=== PATIENT | female | born 1955 | race Caucasian/White ===

== ENCOUNTER 2017-06-25 10:59 | Emergency (ER) | payer OTHER ==
[~2017-06-25] VITALS: Wt 94.5 kg
[~2017-06-25 10:59] MED LIST: ALBUTEROL; AMLO2.5T78 PO; AMLO5TAB4 PO; AZIT500T3 PO; BENA40TA54 PO; HYDR-905 PO; HYDR25TA6 PO; IBUP800T25 PO; LORA10TA3 PO; METH750T93 PO; MOME13HF INH
[2017-06-25 13:42] LABS: ADD UMIC NO; UR ASCORBIC ACID NEGATIVE (NEGATIVE); UR BILIRUBIN (Dip) NEGATIVE (NEGATIVE); UR BLOOD (Dip) NEGATIVE (NEGATIVE); UR CLARITY CLEAR (CLEAR); UR COLOR YELLOW (YELLOW); UR GLUCOSE (Dip) NEGATIVE (NEGATIVE); UR KETONES (Dip) NEGATIVE (NEGATIVE); UR LEUKOCYTE ESTERASE (Dip) NEGATIVE Leu/ul (NEGATIVE); UR NITRITE (Dip) NEGATIVE (NEGATIVE); UR SPECIFIC GRAVITY (Dip) 1.023 (1.003-1.030); UR TOTAL PROTEIN (Dip) NEGATIVE (NEGATIVE); UR UROBILINOGEN (Dip) NEGATIVE (NEGATIVE)
--- NOTE | 2017-06-25 14:31 | ERD ---
ER Documentation Chief Complaint Chief Complaint l. sided hernandez rad into l. eye and ear also dysuria HPI 61-year-old female comes in with left-sided headache going to her left eye, ear for for the past 4 days, also urinary incontinence with urinary frequent urination over the last 2 months.Patient describes sharp pain, intermittent, no blurry vision, nausea, paresthesias, loss of consciousness.She describes his headache to be mild and intermittent. She does not have any weekly headache and denies that this is a worse headache of her life. She also has had history of what appears to be uterine prolapse, states that she has had leakage of urine for the past 2 months as well. She denies fevers or chills, nausea, vomiting, diarrhea, vaginal bleeding. ROS All systems reviewed and are negative except as per history of present illness. Medications Home Meds Active Scripts Ibuprofen* (Motrin*) 800 Mg Tab, 800 MG PO TID, #30 TAB Prov:STEPAN BOJORQUEZ DO 03/15/16 Methocarbamol* (Robaxin*) 750 Mg Tablet, 750 MG PO TID, #30 TAB Prov:STEPAN BOJORQUEZ DO 03/15/16 Hydrocodone/Acetaminophen ([place] 7.5-325 Tablet) 1 Each Tablet, 1 EACH PO q 4-6 h prn pain, #20 TAB Prov:STEPAN BOJORQUEZ DO 03/15/16 Amlodipine Besylate* (Norvasc*) 5 Mg Tablet, 5 MG PO DAILY for 30 Days, TAB Prov:STEPAN BOJORQUEZ DO 03/15/16 Reported Medications Azithromycin* (Zithromax*) 500 Mg Tablet, 500 MG PO DAILY for 5 Days 02/28/13 Mometasone-Formoterol (Dulera) 13 Gm Hfa.aer.ad, 2 INH BID 02/28/13 Loratadine* (Loratadine*) 10 Mg Tablet, 10 MG PO DAILY 02/28/13 Amlodipine Besylate* (Amlodipine Besylate*) 2.5 Mg Tablet, 5 MG PO HS 02/28/13 [Albuterol] No Conflict Check 02/28/13 Hydrochlorothiazide (Hydrochlorothiazide) 25 Mg Tablet, 25 MG PO AM 02/28/13 Benazepril Hcl* (Lotensin*) 40 Mg Tablet, 40 MG PO DAILY 02/28/13 Allergies Allergies: Coded Allergies: No Known Allergy (Unverified , 02/28/13) PMhx/Soc History of Surgery: Yes (EYES) Hx Neurological Disorder: No Hx Respiratory Disorders: Yes (COPD) Hx Cardiac Disorders: Yes (HTN; CHF) Hx Psychiatric Problems: No Hx Miscellaneous Medical Probl: Yes (Pruritus) Hx Alcohol Use: No Hx Substance Use: No Hx Tobacco Use: No Smoking Status: Never smoker Physical Exam Vitals Vital Signs Date Time Temp Pulse Resp B/P Pulse Ox O2 Delivery O2 Flow Rate FiO2 06/25/17 11:37 99.2 83 20 179/77 98 Physical Exam General: Well-developed, well-nourished. The patient appears in no acute distress. HEENT: Head is normocephalic, atraumatic. No scleral icterus. Neck: Supple. Nontender. Lungs: Clear to auscultation. Normal air movement. Heart: Regular rate and rhythm. S1 and S2 are normal. No murmurs, gallops, or rubs. Abdomen: Soft, nontender, nondistended. Bowel sounds are normoactive. Extremities: No clubbing or cyanosis. Normal pulses. Moving extremities x 4. No weakness. Neurologic: Alert and oriented 3. No focal deficits.Cranial nerves II to XII grossly intact, speech and gait normal. Skin: Normal turgor. No rash or lesions. Results 24 hrs Laboratory Tests Test 06/25/17 13:30 Urine Color YELLOW Urine Clarity CLEAR Urine pH 5.0 Urine Specific [place] 1.023 Urine Ketones NEGATIVEmg/dL Urine Nitrite NEGATIVEmg/dL Urine Bilirubin NEGATIVEmg/dL Urine Urobilinogen NEGATIVEmg/dL Urine Leukocyte Esterase NEGATIVELeu/ul Urine Hemoglobin NEGATIVEmg/dL Urine Glucose NEGATIVEmg/dL Urine Total Protein NEGATIVEmg/dl DIAGNOSTIC IMAGING REPORT Patient: JOSE HEATH : 1955 Age: 61 Sex: F MR #: [id number] DOS: 06/25/17 1343 Ordering MD: KEISHA GENTILE PA-C Location: [facility] Room/Bed: PROCEDURE: US Pelvis. CLINICAL INDICATION: pelvic pain , history of fibroids TECHNIQUE: Multiple sonographic images of the pelvis were obtained utilizing a transabdominal and endovaginal technique. The images were reviewed on a PACS workstation. COMPARISON: None. FINDINGS: The study is limited due to the patient's body habitus. The fundus of the uterus is not well seen. The uterus is normal in size with a heterogeneous appearance of the myometrium. The uterus measures 6.0 x 3.3 x 4.2 cm. There are Nabothian cysts in the cervix. The endometrial stripe is homogeneous in appearance and has the thickness of 1.1 mm. The ovaries are not visualized due to overlying bowel gas. No free fluid is present within the pelvis. RPTAT: AA IMPRESSION: Heterogeneous uterus with no discrete mass. Atrophic endometrium. Ovaries not visualized. .Bj Winter MD, MD Date Time Electronically viewed and signed by .Bj Winter MD, MD on 06/25/2017 14: 42 .S/ CC: KEISHA GENTILE PA-C DIAGNOSTIC IMAGING REPORT Patient: JOSE HEATH : 1955 Age: 61 Sex: F MR #: [id number] DOS: 06/25/17 1442 Ordering MD: KEISHA GENTILE PA-C Location: [facility] Room/Bed: PROCEDURE: Noncontrast CT Head. CLINICAL INDICATION: Left temporal headache for 4 days. TECHNIQUE: Noncontrast CT of the head was obtained. The administered radiation dose was CTDI vol = 44.03 mGy, DLP = 720.23 mGy-cm. One or more of the following dose reduction techniques were used: Automated exposure control, Adjustment of the mA and/or kV according to patient size, or Use of iterative reconstruction technique. COMPARISON: There are no similar studies submitted for comparison. FINDINGS: There is no acute intracranial hemorrhage, midline shift, or mass effect. The cerebral saini-white matter differentiation appears preserved. No extra-axial collection is seen. The cerebral sulci and ventricles are within normal limits in size and configuration for patient's age. Mild patchy low attenuation scattered in the periventricular, deep, and subcortical cerebral white matter is nonspecific, but suggestive of mild chronic microangiopathic change. The basal cisterns are preserved. The brainstem and cerebellum are grossly unremarkable, although suboptimally evaluated with CT secondary to beam- hardening artifact. There is bilateral aphakia. The visualized paranasal sinuses and mastoid air cells are clear. No acute fracture or suspicious osseous lesion is identified. IMPRESSION: 1. No evidence of an acute intracranial process. 2. Evidence of mild chronic microangiopathic cerebral white matter change. RPTAT: HRC Physician Levy Date Time Electronically viewed and signed by Physician Levy on 06/25/2017 15: 44 RC/ Procedures/MDM 61-year-old female presents with stress incontinence, atrophic endometrium, and otherwise unremarkable pelvic ultrasound. Urine was negative for infection. The patient's symptoms include leakage from the vaginal region, this is likely stress incontinence. She has some pelvic pain as well but no pelvic masses seen on ultrasound. She also had a CT scan of head due to her left-sided headache, there is no hydrocephalus, symptoms are likely due to a peripheral neuralgia. No evidence of Sanchez's palsy, history is not concerning for TIA or stroke. Patient's blood pressure was elevated (>120/80) but appears stable without evidence of hypertension emergency or urgency. The patient was counseled about the risks of hypertension and urged to pursue outpatient monitoring and therapy within a week with their primary care physician. Departure Diagnosis: Primary Impression: Stress incontinence Additional Impressions: Headache Hypertension Condition: KEISHA Lin PA-C Jun 25, 2017 14:31
--- NOTE | 2017-06-25 14:42 | RADRPT ---
PROCEDURE: US Pelvis. CLINICAL INDICATION: pelvic pain , history of fibroids TECHNIQUE: Multiple sonographic images of the pelvis were obtained utilizing a transabdominal and endovaginal technique. The images were reviewed on a PACS workstation. COMPARISON: None. FINDINGS: The study is limited due to the patient's body habitus. The fundus of the uterus is not well seen. The uterus is normal in size with a heterogeneous appearance of the myometrium. The uterus measures 6.0 x 3.3 x 4.2 cm. There are Nabothian cysts in the cervix. The endometrial stripe is homogeneous in appearance and has the thickness of 1.1 mm. The ovaries are not visualized due to overlying bowel gas. No free fluid is present within the pelvis. RPTAT: AA IMPRESSION: Heterogeneous uterus with no discrete mass. Atrophic endometrium. Ovaries not visualized. .Bj Winter MD, Date Time Electronically viewed and signed by .Bj Winter MD, on 06/25/2017 14:42 .S/
--- NOTE | 2017-06-25 15:44 | RADRPT ---
PROCEDURE: Noncontrast CT Head. CLINICAL INDICATION: Left temporal headache for 4 days. TECHNIQUE: Noncontrast CT of the head was obtained. The administered radiation dose was CTDI vol = 44.03 mGy, DLP = 720.23 mGy-cm. One or more of the following dose reduction techniques were used: Au tomated exposure control, Adjustment of the mA and/or kV according to patient size, or Use of iterat pepper reconstruction technique. COMPARISON: There are no similar studies submitted for comparison. FINDINGS: There is no acute intracranial hemorrhage, midline shift, or mass effect. The cerebral saini-white ma tter differentiation appears preserved. No extra-axial collection is seen. The cerebral sulci and ve ntricles are within normal limits in size and configuration for patient's age. Mild patchy low atten uation scattered in the periventricular, deep, and subcortical cerebral white matter is nonspecific, but suggestive of mild chronic microangiopathic change. The basal cisterns are preserved. The brain stem and cerebellum are grossly unremarkable, although suboptimally evaluated with CT secondary to b eam-hardening artifact. There is bilateral aphakia. The visualized paranasal sinuses and mastoid air cells are clear. No acute fracture or suspicious osseous lesion is identified. IMPRESSION: 1. No evidence of an acute intracranial process. 2. Evidence of mild chronic microangiopathic cerebral white matter change. RPTAT: HRC Physician Levy Date Time Electronically viewed and signed by Physician Levy on 06/25/2017 15:44 MILO/
[2017-06-25] MEDS ORDERED: TRAM50TA2 PO (16:13)
[2017-06-25 16:17] VITALS: BP 158/76; PULSE 84; RESP 20; TEMP 98.9
== END 2017-06-25 16:17 | disposition home or self-care (01) ==
LOC: FTE 10:59
DX: N39.3 Stress incontinence (female) (male) (principal); I10 Essential (primary) hypertension; I50.9 Heart failure, unspecified; J44.9 Chronic obstructive pulmonary disease, unspecified
CPT/HCPCS: 70450; 76830; 76856; 81003; Z7502

== ENCOUNTER 2017-07-26 09:58 | Emergency (ER) | END 2017-07-26 11:54 | disposition home or self-care (01) ==

== ENCOUNTER 2017-08-07 09:04 | Emergency (ER) | END 2017-08-07 10:47 | disposition home or self-care (01) ==

== ENCOUNTER 2017-08-23 11:08 | Emergency (ER) | END 2017-08-23 17:50 | disposition home or self-care (01) ==

== ENCOUNTER 2017-08-31 07:39 | Emergency (ER) | END 2017-08-31 09:44 | disposition home or self-care (01) ==

== ENCOUNTER 2017-09-28 21:06 | Emergency (ER) | END 2017-09-29 05:57 | disposition home or self-care (01) ==

== ENCOUNTER 2017-10-21 10:11 | Emergency (ER) | END 2017-10-21 23:22 | disposition home or self-care (01) ==

== ENCOUNTER 2017-12-20 09:07 | Emergency (ER) | END 2017-12-20 11:36 | disposition home or self-care (01) ==

== ENCOUNTER 2018-02-25 09:22 | Day surgery (SDC) | END 2018-02-25 14:37 | disposition home or self-care (01) ==

== ENCOUNTER 2019-01-25 11:38 | Emergency (ER) | payer OTHER ==
[~2019-01-25] VITALS: Ht 162.6 cm; Wt 97.0 kg
[~2019-01-25 11:38] MED LIST changes: +ALBU18HF INHALATION; -ALBUTEROL; -AMLO2.5T78 PO; -AMLO5TAB4 PO; -AZIT500T3 PO; -BENA40TA54 PO; -HYDR-905 PO; -HYDR25TA6 PO; -IBUP800T25 PO; +LOSARTAN; -METH750T93 PO; -MOME13HF INH; +NAPROXEN
[2019-01-25 11:41] VITALS: Ht 162.6 cm; Wt 97.0 kg
--- NOTE | 2019-01-25 13:13 | ERD ---
ER Documentation Chief Complaint Chief Complaint abdominal pain HPI The patient is a 63-year-old female, presenting to the ER because of intermittent diffuse abdominal pain for 10 days, had similar symptoms previously, his fever, chills, neck pain, chest pain, dyspnea, vomiting, dysuria, diarrhea. She does not smoke nor drink EGD and colonoscopy on February 25, 2018 that showed gastritis Past medical history: Hypertension, asthma, history of ovarian cyst Past surgical history: Cataract ROS All systems reviewed and are negative except as per history of present illness. Medications Home Meds Active Scripts Ibuprofen* (Motrin*) 600 Mg Tab, 600 MG PO Q6H PRN for PAIN AND OR ELEVATED TEMP, #20 TAB Prov:ANNA MAYA MD 01/25/19 Reported Medications [Naproxen] No Conflict Check 02/25/18 [Losartan] No Conflict Check 02/25/18 Albuterol Sulfate* (Ventolin HFA*) 18 Gm Hfa.aer.ad, 2 PUFF INHALATION Q4H, #1 INHALER 10/21/17 Loratadine* (Loratadine*) 10 Mg Tablet, 10 MG PO DAILY, #30 TAB 10/21/17 Allergies Allergies: Coded Allergies: amoxicillin (Verified Allergy, Intermediate, RASH, 02/25/18) Penicillins (Verified Allergy, Unknown, 02/25/18) PMhx/Soc History of Surgery: Yes (B/L CATARACT REMOVAL) Anesthesia Reaction: No Hx Neurological Disorder: No Hx Respiratory Disorders: Yes (ASTHMA) Hx Cardiac Disorders: Yes (HTN) Hx Psychiatric Problems: No Hx Miscellaneous Medical Probl: No Hx Alcohol Use: No Hx Substance Use: No Hx Tobacco Use: No Physical Exam Vitals Vital Signs Date Temp Pulse Resp B/P (MAP) Pulse Ox O2 O2 Flow FiO2 Time Delivery Rate 01/25/19 80 18 135/58 97 Room Air 15:00 (83) 01/25/19 79 15 163/73 98 Room Air 14:00 (103) 01/25/19 98.6 89 18 193/90 97 11:41 (124) Physical Exam Const: No acute distress. Head: Atraumatic. Eyes: Normal Conjunctiva. ENT: Normal External Ears, Nose and Mouth. Neck: Full range of motion. No meningismus. Resp: Clear to auscultation bilaterally. Cardio: Regular rate and rhythm. Abd: Soft, non distended, normal bowel sounds, vague and diffuse abdominal tenderness, no rigidity/rebound/CVA tenderness Skin: No petechiae or rashes. Back: No midline or flank tenderness. Ext: No cyanosis, or edema. Neur: Awake and alert. No focal deficit Psych: Normal Mood and Affect. Result Diagram: 01/25/19 1353 01/25/19 1353 Results 24 hrs Laboratory Tests Test 01/25/19 13:47 01/25/19 13:53 Bedside Urine pH (LAB) 7.0 Bedside Urine Protein (LAB) Trace Bedside Urine Glucose (UA) Negative Bedside Urine Ketones (LAB) Negative Bedside Urine Blood Negative Bedside Urine Nitrite (LAB) Negative Bedside Urine Leukocyte Esterase (L Negative White Blood Count 7.9 10^3/ul Red Blood Count 4.15 10^6/ul Hemoglobin 11.8 g/dl Hematocrit 36.4 % Mean Corpuscular Volume 87.7 fl Mean Corpuscular Hemoglobin 28.4 pg Mean Corpuscular Hemoglobin Concent 32.4 g/dl Red Cell Distribution Width 14.2 % Platelet Count 262 10^3/UL Mean Platelet Volume 8.8 fl Immature Granulocytes % 0.800 % Neutrophils % 66.6 % Lymphocytes % 25.2 % Monocytes % 5.7 % Eosinophils % 1.3 % Basophils % 0.4 % Nucleated Red Blood Cells % 0.0 /100WBC Immature Granulocytes # 0.060 10^3/ul Neutrophils # 5.3 10^3/ul Lymphocytes # 2.0 10^3/ul Monocytes # 0.5 10^3/ul Eosinophils # 0.1 10^3/ul Basophils # 0.0 10^3/ul Nucleated Red Blood Cells # 0.0 10^3/ul Sodium Level 145 mmol/L Potassium Level 4.2 mmol/L Chloride Level 109 mmol/L Carbon Dioxide Level 29 mmol/L Anion Gap 7 Blood Urea Nitrogen 29 mg/dl Creatinine 0.66 mg/dl Est Glomerular Filtrat Rate mL/min > 60 mL/min Glucose Level 113 mg/dl Calcium Level 9.2 mg/dl Total Bilirubin 0.3 mg/dl Direct Bilirubin 0.00 mg/dl Indirect Bilirubin 0.3 mg/dl Aspartate Amino Transf (AST/SGOT) 22 IU/L Alanine Aminotransferase (ALT/SGPT) 21 IU/L Alkaline Phosphatase 106 IU/L Total Protein 7.3 g/dl Albumin 4.0 g/dl Globulin 3.30 g/dl Albumin/Globulin Ratio 1.21 Lipase 114 U/L Current Medications Medications Dose Sig/Efra Start Time Status Last (Trade) Ordered Route PRN Stop Time Admin Dose Reason Admin Ketorolac 30 mg ONCE STAT 01/25/19 DC 01/25/19 Tromethamine IV 13:18 01/25/19 13:44 (Toradol) 13:20 Procedures/MDM [place] [id number] Radiology Main Line: [phone] DIAGNOSTIC IMAGING REPORT Patient: JOSE HEATH : 1955 Age: 63 Sex: F MR #: [id number] DOS: 01/25/19 1318 Ordering MD: ANNA MAYA MD Location: E/R Room/Bed: PROCEDURE: CT Abdomen and Pelvis without contrast. CLINICAL INDICATION: Abdominal pain. TECHNIQUE: CT scan of the abdomen and pelvis without contrast was performed on a multidetector high-resolution CT scanner. The patient was scanned without intravenous contrast. Coronal and sagittal reformatted images were obtained from the axial source images. Images were reviewed on a high-resolution PACS workstation. One or more of the following dose reduction techniques were used: Automated exposure control, adjustment of the mA and/or kV according to patient size, use of iterative reconstruction technique. DICOM images are available. The total exam CTDI equals 22.05 mGy and the total exam DLP equals 1215.32 mGy- cm. COMPARISON: CT from 10/21/2017. FINDINGS: CT ABDOMEN: Visualized lung bases: No significant infiltrate or pleural/pericardial effusion. The heart size is normal. Liver: There is a stable small 1.1 cm hypodense right hepatic lobe lesion, too small to characterize but likely representing a cyst. The liver is normal in size and demonstrates normal attenuation. No evidence of solid hepatic mass or intrahepatic ductal dilatation. Gallbladder and bile ducts: Unremarkable. Spleen: Unremarkable. Pancreas: Unremarkable. No ductal dilatation, mass, or peripancreatic stranding. Adrenal glands: Unremarkable. Kidneys: No hydronephrosis, stones, or solid lesions seen. Vasculature: There is minimal aortic atherosclerosis. No abdominal aortic aneurysm. Negative IVC. Lymph nodes: No adenopathy. GI: There is no evidence of inflamed appendix. Negative terminal ileum and rectum. No evidence of obstruction. Negative sigmoid colon. Peritoneal cavity: No free fluid or free air. CT PELVIS: : Normal appearing bladder, distal ureters and ureterovesiculal junctions. The pelvic organs are unremarkable. Peritoneal cavity: No free fluid or free air. Lymph nodes: No adenopathy. Osseous structures: No acute osseous injury. No lytic or blastic lesions. Other: None. IMPRESSION: No evidence of acute abdominopelvic inflammatory process, mass or lymp hadenopathy. RPTAT: JJ .Grant Braun MD, MD Date Time Electronically viewed and signed by .Grant Braun MD, MD on 01/25/2019 14:14 .A/ CC: ANNA MAYA MD [phone] MEDICAL MAKING DECISION: The patient is a 63-year-old female, presenting with acute abdominal pain of unclear etiology. She was treated with Toradol 30 mg IV for pain with good response, was able to tolerate p.o. well, is stable for outpatient follow-up The differential diagnoses considered include but are not limited to cholelithiasis, cholecystitis, choledocholithiasis, cholangitis, pancreatitis, hepatitis, gastritis, peptic ulcer disease, gastric ulcer, appendicitis, cystitis, diverticulitis, partial small bowel obstruction. Departure Diagnosis: Primary Impression: Abdominal pain Additional Impression: Anemia Condition: Good Comments She was discharged with Motrin I discussed the findings with the patient. I advised the patient to follow-up with the primary physician in about 1-2 days, sooner if needed and return if any concern. Disclaimer: Inadvertent spelling and grammatical errors are likely due to EHR/dictation software use and do not reflect on the overall quality of patient care. Also, please note that the electronic time recorded on this note does not necessarily reflect the actual time of the patient encounter. ANNA MAYA MD Jan 25, 2019 13:13
[2019-01-25] MEDS ORDERED: KETOROLAC 30 MG INJ IV STA (13:18)
[2019-01-25 15:00] VITALS: BP 135/58; PULSE 80; RESP 18
[2019-01-25] MEDS ORDERED: IBUP-1542 PO (15:07)
== END 2019-01-25 15:20 | disposition home or self-care (01) ==
LOC: E/R 11:38
DX: D64.9 Anemia, unspecified (principal); I10 Essential (primary) hypertension; J45.909 Unspecified asthma, uncomplicated
CPT/HCPCS: 36415; 74176; 80053; 81003; 83690; 85025; 96374; J1885; Z7502